=== PATIENT | male | born 1965 | race Caucasian/White ===

== ENCOUNTER 2016-06-13 06:07 | Inpatient (IN) | payer OTHER ==
[2016-05-29 11:14] LABS: % IMMATURE GRANULYOCYTES 0.2 % (0.0-1.1); ABSOLUTE IMMATURE GRANULOCYTES 0.01 10^3/uL (0.00-0.10); ADD DIFF? NO; ADD MORPH? NO; ADD SCAN? NO; ATYPICAL LYMPHOCYTE FLAG 10 (0-99); FRAGMENT RBC FLAG 0 (0-99); HEMATOCRIT 43.3 % (40.0-51.0); HEMOGLOBIN 14.7 g/dL (13.7-17.5); LEFT SHIFT FLG 0 (0-99); LIPEMIA HEMOLYSIS FLAG 90 (0-99); MEAN CELL HEMOGLOBIN 30.4 pg (27.9-34.1); MEAN CELL HEMOGLOBIN CONCENTR. 33.9 g/dL (32.4-36.7); MEAN CELL VOLUME 89.6 fL (81.5-99.8); MEAN PLATELET VOLUME 10.6 fL (8.7-11.7); PLATELET CLUMPS FLAG 0 (0-99); PLATELET COUNT 188 10^3/uL (150-400); RED BLOOD CELL COUNT 4.83 10^6/uL (4.40-6.38); RED CELL DISTRIBUTION WIDTH 12.7 % (11.5-15.2)
[~2016-06-13 06:07] MED LIST: ACETAMINOPHEN 325 MG TAB PO ONE; CEFAZOLIN 2 GM/DEXTR 100 ML IV ONE; CHLORHEXIDINE GLUC HIBICLENS 118 ML BTL TP ONE; DEXAMETHASONE 4 MG/ML VIAL IVP ONE; FAMOTIDINE 20 MG TAB PO ONE; ROPI/epiNEPH/KETOROLAC JOINT COCKTAIL IU ONE; TRANEXAMIC ACID 3,000 MG in NS 50 ML IRR ONE
[2016-06-13] MEDS ORDERED: SKIN ADHESIVE (DERMABOND) 1 EACH TP ONE (06:44)
[2016-06-13] MEDS ORDERED: VANCOMYCIN 1 GM VIAL IV ONE (06:45)
[2016-06-13] MEDS ORDERED: TRANEXAMIC ACID 3,000 MG/50 ML BAG IRR ONE (06:45)
[2016-06-13] MEDS ORDERED: PROPOFOL/EMULSION 500 MG/50 ML BOTTLE IV ONE ×3 (06:57→08:37)
[2016-06-13] MEDS ORDERED: LIDOCAINE 2% 100 MG/5 ML SYR IVP ONE (06:57)
[2016-06-13] MEDS ORDERED: MIDAZOLAM 2 MG/2 ML VIAL ONE ×2 (06:57→06:58)
[2016-06-13] MEDS ORDERED: LIDOCAINE 1% 5 ML SDV ID PRN (07:04)
[2016-06-13] MEDS ORDERED: LR 1,000 ML IV ONE (07:04)
[2016-06-13] MEDS ORDERED: POLYETHYLENE GLYCOL 3350 17 GM PKT PO PRN (09:19)
[2016-06-13] MEDS ORDERED: PHARMACY PAIN CONSULT 1 EA MISC PRN (09:19)
[2016-06-13] MEDS ORDERED: BISACODYL 10 MG SUPP PR PRN (09:19)
[2016-06-13] MEDS ORDERED: DIPHENOXYLATE/ATROPINE LOMOTIL 1 TAB PO PRN (09:19)
[2016-06-13] MEDS ORDERED: LACTULOSE 20 GM/30 ML UDCUP PO PRN (09:19)
[2016-06-13] MEDS ORDERED: ONDANSETRON 4 MG/2 ML VIAL IVP PRN (09:19)
[2016-06-13] MEDS ORDERED: PROMETHAZINE HCL 25 MG/ML VIAL IVP PRN (09:19)
[2016-06-13] MEDS ORDERED: MAGNESIUM HYDROXIDE 30 ML UDCUP PO PRN (09:19)
[2016-06-13] MEDS ORDERED: METOCLOPRAMIDE 10 MG/2 ML VIAL IVP PRN (09:19)
[2016-06-13] MEDS ORDERED: diphenhydrAMINE 25 MG CAP PO PRN (09:19)
[2016-06-13] MEDS ORDERED: CYCLOBENZAPRINE 10 MG TAB PO PRN (09:19)
[2016-06-13] MEDS ORDERED: ONDANSETRON DISINTEGRATING 4 MG TAB PO PRN (09:19)
[2016-06-13] MEDS ORDERED: TEMAZEPAM 15 MG CAP PO PRN (09:19)
[2016-06-13] MEDS ORDERED: PROMETHAZINE HCL 25 MG SUPPR PR PRN (09:19)
--- NOTE | 2016-06-13 09:19 | POSTOPPROG ---
Post Op Note Date of Operation: 06/13/16 Surgeon: Ewa Cruz Bee Breeder: raya cruz Anesthesiologist: dr. beltrán Anesthesia: Spinal, Other (Specify) (adductor canal block) Pre-op Diagnosis: severe knee OA Post-op Diagnosis: same Indication: left knee pain due to OA that failed conservative measures Procedure: L TKA Findings: severe knee OA Inf/Abcess present in the surg proc area at time of surgery?: No EBL: 50-100
[2016-06-13] MEDS ORDERED: BUPIVACAINE/EPI 0.5% 30 ML SDV ONE (09:29)
[2016-06-13] MEDS ORDERED: LR 1,000 ML IV SCH (09:30)
--- NOTE | 2016-06-13 10:08 | DX ---
Left Knee, Two Views 0951 hours History: Status post knee arthroplasty. Findings: Total knee arthroplasty appears in anatomical alignment with horizontal screw through the d istal metadiaphysis of the left femur and oblique screw in the metaphysis of the left femur possibly representing ACL repair. Gas in the joint space and edema in the suprapatellar soft tissues. Edema in the soft tissues. Impression: Status post left total knee replacement.
[2016-06-13 10:19] VITALS: RESP 16
[2016-06-13] MEDS: oxyCODONE IR 5 MG TAB PO PRN ×4 (10:52→21:55)
[2016-06-13] MEDS: ACETAMINOPHEN 325 MG TAB PO SCH ×3 (11:50→23:35)
[2016-06-13] MEDS: ceFAZolin 2 GM/DEXTROSE 100 ML IV SCH ×2 (14:57→21:55)
--- NOTE | 2016-06-13 18:11 | GOP ---
[f rep st] OPERATIVE REPORT DATE OF OPERATION: 06/13/2016 SURGEON: Gato Burton MD DRY CELL TESTER: CLAUDIA Wu ANESTHESIA: Spinal. PREOPERATIVE DIAGNOSIS: Left knee osteoarthritis. POSTOPERATIVE DIAGNOSIS: Left knee osteoarthritis. PROCEDURE PERFORMED: Left total knee arthroplasty. FINDINGS: ESTIMATED BLOOD LOSS: 30 cc. INDICATIONS: This is a 50-year-old male with severe and progressive pain and deformity of the left knee unresponsive to conservative care. Risks and benefits of the surgical intervention were explained in detail. DESCRIPTION OF PROCEDURE: The patient was brought to the operative room and placed on the table in the supine position. Spinal anesthesia was induced without difficulty. A pneumatic tourniquet was applied about the left proximal thigh, and the leg was prepped and draped in a sterile fashion. The leg garcia was applied. After exsanguination by elevation the tourniquet was inflated to 275 mm of mercury. Incision was made anterior medial from the tibial tuberosity to a point 2 cm proximal to the superior pole of the patella. Medial parapatellar arthrotomy was carried out from the superior pole of the patella and posteriorly in line with the fibers of the Type II VMO. The medial collateral ligament was elevated and the infrapatellar fat pad was resected. The patella was everted and the articular surface was excised. A 35 mm patellar button was placed. Attention was turned first to the distal aspect of the right femur. At 3 cm proximal to the medial rise of the femur, 2 percutaneous half pins were placed for fixation of the femoral array. In a similar fashion, 2 pins were placed anteromedial on the tibia for fixation of the tibial array. External land marking and registration of the hip center was performed without difficulty. Internal femoral and tibial registration was carried out without difficulty and the femoral and tibial checkpoints were placed and verified for accuracy. Attention was turned to the femur. The foot print for the size 5 femoral component was cut with the saw using the [employer] robotic system and verified for accuracy against the CT based plan. In a similar fashion, saw was used to cut the footprint for the size 6 tibial component using the [employer] system and verified for accuracy against the CT based plan. The tibial articular surface was excised without difficulty, followed by the intercondylar box cut. ACL screw was removed from tibia and moderate tibial cyst noted. This was cleaned with ronguer and filled with cement during cementation The knee was extended and the remnants of the medial and lateral meniscus were excised. The posterior capsule was injected with ropivacaine, epinephrine and Toradol. A size 6 universal tibial tray was positioned. Trial reduction was then carried out. There was excellent range of motion, alignment, and stability using the 11 mm polyethylene. All trials were then removed. The joint was thoroughly irrigated and carefully dried. Two packages of cement and 2 grams of vancomycin were mixed in the vacuum mixer and placed on the fixation surfaces of all surfaces of the components. The components were implanted and all excess cement was thoroughly removed. The permanent 9 mm polyethylene was placed without difficulty. The tourniquet was deflated and all bleeders were coagulated. The wound was thoroughly irrigated and closed using interrupted sutures of 2-0 Vicryl for the joint capsule. The subcu was closed with 3-0 Vicryl and the skin with 4-0 Monocryl. Dermabond and Steri-Strips were applied followed by a compressive dressing. The patient was then moved from the operating room to the recovery room in good condition, having tolerated the procedure well. PATHOLOGY: Severe tricompartmental osteoarthritis. /[id number]/MODL MTDD
[2016-06-13] MEDS: FAMOTIDINE 20 MG TAB PO SCH (20:39)
[2016-06-13] MEDS: SENNOSIDES/DOCUSATE SODIUM TAB PO SCH (20:39)
[2016-06-13] MEDS: ASPIRIN 325 MG TAB PO SCH (20:39)
[2016-06-14] MEDS: oxyCODONE IR 5 MG TAB PO PRN ×2 (04:20→10:03)
[2016-06-14 05:40] LABS: HEMATOCRIT 36.2 % (40.0-51.0); HEMOGLOBIN 12.2 g/dL (13.7-17.5)
[2016-06-14] MEDS ORDERED: LEVOTHYROXINE 125 MCG TAB PO SCH (06:00)
[2016-06-14] MEDS: ACETAMINOPHEN 325 MG TAB PO SCH (06:10)
[2016-06-14 08:48] VITALS: BP 128/87; PULSE 69; TEMP 98.1; O2SAT 95
[2016-06-14] MEDS: ASPIRIN 325 MG TAB PO SCH (09:07)
[2016-06-14] MEDS: FAMOTIDINE 20 MG TAB PO SCH (09:08)
[2016-06-14] MEDS: SENNOSIDES/DOCUSATE SODIUM TAB PO SCH (09:08)
--- NOTE | 2016-06-14 10:27 | SOAPPROG ---
SOAP Progress Note Assessment/Plan: Assessment: Patient is doing well POD 1 s/p L TKA 1.Pain management: pain is well controlled on oral pain meds 2.Anemia: level is expected initially postop. Asymptomatic. Cont to monitor for symptoms 3.VTE ppx: recommend aspirin 325mg daily. Cont DEISI mercado and SCD 4. d/c planning: d/c to home today pending release from PT. Plan: 06/14/16 10:26 Subjective: Jason is doing well this morning. denies SOB, chest pain and N/V. Objective: Vital Signs Temp Pulse Resp BP Pulse Ox 36.7 C 69 16 128/87 H 95 06/14/16 08:00 06/14/16 08:00 06/14/16 08:00 06/14/16 08:00 06/14/16 08:00 Laboratory Results 06/14/16 04:17 06/13/16 06/14/16 06/15/16 05:59 05:59 05:59 Intake Total 1980 Output Total 1800 Balance 180 LLE: incision dressing is clean and dry, nVI, +pf/df ICD10 Worksheet Patient Problems: Problems Problem Status Diagnosed Primary localized osteoarthritis of left knee Acute
--- NOTE | 2016-06-14 11:33 | GDS ---
[f rep st] DISCHARGE SUMMARY ADMISSION DIAGNOSIS: Left knee osteoarthritis. DISCHARGE DIAGNOSIS: Left knee osteoarthritis. PROCEDURE: Left total knee arthroplasty, robot assisted. VTE PROPHYLAXIS: Aspirin recommended for 3 weeks daily. BRIEF DESCRIPTION OF HOSPITAL STAY: Patient was admitted for an elective joint arthroplasty. The pa tient tolerated the procedure well and has passed physical therapy. The patient was given appropriat e antibiotic prophylaxis and venous thromboembolism prophylaxis. The patient's pain was well control led on oral pain medication, patient was holding down food, and had urinated. Decision was made to d ischarge the patient. The patient was given post-operative prescriptions pre-operatively. PLAN: To follow up with Dr. Burton at [facility] in 2 to 3 weeks. /[id number]/MODL
== END 2016-06-14 11:08 | disposition home or self-care (01) | DRG 470 ==
LOC: F3N 06:07
PROVIDERS: ADMIT Orthopaedic Surgery; ATTEND Orthopaedic Surgery
PROC: 8E0Y0CZ Robotic Assisted Procedure of Lower Extremity, Open Approach (ICD-10-PCS; principal; 2016-06-13 07:15)
PROC: 0SRD0J9 Replacement of Left Knee Joint with Synthetic Substitute, Cemented, Open Approach (ICD-10-PCS; principal; 2016-06-13 07:15)
DX: M17.12 Unilateral primary osteoarthritis, left knee (principal)
CPT/HCPCS: 97116-GP; 97161-GP; 97165-GO; 97530-GP; C1713; J0171; J0690; J1100; J1885; J2001; J2250; J2704; J2795; J3370

== ENCOUNTER 2016-12-08 10:55 | Day surgery (SDC) | payer OTHER ==
[2016-12-08] MEDS ORDERED: HYDROmorphONE/DILAUDID 1 MG/ML SYR IVP ONE ×3 (11:00→11:26)
[2016-12-08] MEDS ORDERED: ONDANSETRON 4 MG/2 ML VIAL IVP ONE (11:00)
[2016-12-08] MEDS ORDERED: HYDROmorphONE/DILAUDID 1 MG/ML SYR ONE ×4 (11:04→11:27)
[2016-12-08] MEDS ORDERED: ONDANSETRON 4 MG/2 ML VIAL ONE (11:04)
--- NOTE | 2016-12-08 11:11 | EDPHY ---
H & P HPI/ROS: CHIEF COMPLAINT: Severe bleeding and laceration to right arm HISTORY OF PRESENT ILLNESS: The patient is a 51 y/o male who arrives POV with severe bleeding from his right arm after falling through a window today. He states he fell 6ft through glass window and suffered a large deep cut to his right arm. His brother placed a makeshift tourniquet immediately. He denies LOC , head strike, spinal pain, chest pain, abdominal pain, pelvic pain, weakness, paresthesias or other injuries anywhere else. He is completely alert and oriented. He denies any pertinent medical history. No anticoagulant use. REVIEW OF SYSTEMS: A full review of systems was not performed due to the emergent nature of his injury. Physical Exam: Initial blood pressure 159/20. Vital signs reviewed. General: The patient is in acute distress with active uncontrolled bleeding from his right arm. The patient is alert. Aziza Coma Score is 15. Head: Normocephalic/atraumatic. No Reyez's sign. No raccoon eyes. Neck: Nontender with palpation of the cervical spine. Trachea is midline. Eyes: PERRLA. EOMI. No subconjunctival hemorrhage. Ears nose and throat: No hemotympanum. Nares are patent and without clotted nasal blood. No dental injury or malocclusion. Airway is patent. Lungs: No rib tenderness, crepitus, or subcutaneous emphysema. Breath sounds are equal and audible bilaterally. No wheezes, rales, or rhonchi. Cardiac: Heart has regular rate and rhythm without murmur, rub, or gallop. Abdomen: Soft, nontender, and nondistended. No guarding or rebound. Bowel sounds are present. Back: No vertebral tenderness. Skin: No ecchymosis. Skin is warm and dry. Extremities: Right arm has large laceration, approximately 6 inches, distal to elbow with active pulsating extravasation. Tourniquets applied until no radial pulse can be felt. Other extremities are atraumatic. Pelvis is stable. Hips are nontender.. Neuro: The patient is alert and oriented. He is moving all 4 extremities spontaneously. Full neurovascular exam not performed due to emergent nature of his injury. 1059: Tourniquet placed just proximal to right elbow. Large laceration with severe bleeding is located just distal to elbow. Bleeding is not completely controlled by initial tourniquet and appears to be arterial. Surgeon paged. 1102: Second tourniquet placed proximal to first. Pressure bandage applied on top of that. X-ray ordered. Labs sent including type&screen. BP 157/139. 1105: Dr. Willson, surgeon, at bedside assessing patient. He will take him to the OR for repair. - Medical/Surgical History PMH: PMH includes: 1. Hypothyroidism - Levothyroxine 2. Left knee replacement. - Social History Additional Social History: Denies alcohol use. Nonsmoker. - Physical Exam Exam: Please see above. Constitutional: Initial Vital Signs Temperature (C) 36.5 C 12/08/16 11:24 Heart Rate 92 12/08/16 11:24 Respiratory Rate 18 12/08/16 11:24 Blood Pressure 159/120 H 12/08/16 11:24 O2 Sat (%) 96 12/08/16 11:24 O2 Delivery Mode Simple Mask O2 (L/minute) 10 Allergies/Adverse Reactions: No Known Allergies Allergy (Unverified 12/08/16 11:35) Home Medications: Medication Instructions Recorded Levothyroxine 12/08/16 Medical Decision Making - Diagnostics Imaging Results: X-ray of the right elbow evaluated by me. No obvious foreign material. No fracture or dislocation. I reviewed the radiology report. ED Course/Re-evaluation: Please see initial portion of this chart for emergency department course. This is a patient with a six inch laceration to the right arm and an arterial injury to his right, dominant, arm. X-ray did not show any bone injury or foreign material. Surgery was consulted shortly after the patient arrived, as it was clear that this would require surgical repair. I did not find evidence of other traumatic injuries at the time of my evaluation. The patient was taken from the emergency department to the operating room by Dr. Willson. Differential Diagnosis: I considered a differential diagnosis of traumatic injury that includes but is not limited to intracranial hemorrhage, skull fracture, concussion, vertebral injury, spinal cord injury, intrathoracic injury, intra-abdominal injury, long bone fractures, contusions, abrasions, and lacerations. In this setting, my major concern was for retained foreign body, arterial injury, nerve injury, and bone injury. The injury appear to be isolated to his right arm. Critical Care Time: I spent a total of 20 minutes of critical care time in obtaining history, performing a physical exam, bedside monitoring of interventions, collecting and interpreting tests and discussion with consultants but not including time spent performing procedures. He had an arterial injury and was at risk of extravasation. - Data Points Laboratory Results: Laboratory Results 12/08/16 11:00 12/08/16 11:00 Medications Given: Discontinued Medications Hydromorphone HCl (Dilaudid) 1 mg IVP EDNOW ONE Stop: 12/08/16 11:01 Last Admin: 12/08/16 11:00 Dose: 1 mg Hydromorphone HCl (Dilaudid) 1 mg IVP EDNOW ONE Stop: 12/08/16 11:16 Last Admin: 12/08/16 11:15 Dose: 1 mg Hydromorphone HCl (Dilaudid) 1 mg IVP EDNOW ONE Stop: 12/08/16 11:27 Last Admin: 12/08/16 11:26 Dose: 1 mg Cefazolin Sodium/Dextrose (Ancef 2 Gm (Premix)) 100 mls @ 200 mls/hr IV EDNOW ONE PRN Reason: Protocol Stop: 12/08/16 11:54 Last Admin: 12/08/16 11:34 Dose: 100 mls Lactated Ringer's (Lr) 1,000 mls @ 0 mls/hr IV ONCE ONE PRN Reason: Per Protocol Stop: 12/08/16 11:54 Last Admin: 12/08/16 15:07 Dose: 1,000 mls Ondansetron HCl (Zofran) 4 mg IVP EDNOW ONE Stop: 12/08/16 11:01 Last Admin: 12/08/16 11:00 Dose: 4 mg Departure - Departure Disposition: To OP Cath/Surgery Clinical Impression: Arterial hemorrhage Laceration of right forearm with complication Qualifiers: Encounter type: initial encounter Qualified Code(s): S51.811A - Laceration without foreign body of right forearm, initial encounter Condition: Good Report Scribed for: Gina Elizalde Report Scribed by: Valorie Rangel Date of Report: 12/08/16 Physician Review and Approval Statement: 12/09/16 13:18 Portions of this note were transcribed by the medical secretary receptionist. I, Dr. Gina Cabeen, personally performed the history, physical exam, and medical decision- making; and confirmed the accuracy of the information in the transcribed note.
[2016-12-08 11:20] LABS: % IMMATURE GRANULYOCYTES 0.3 % (0.0-1.1); ABSOLUTE IMMATURE GRANULOCYTES 0.02 10^3/uL (0.00-0.10); ADD DIFF? NO; ADD MORPH? NO; ADD SCAN? NO; ATYPICAL LYMPHOCYTE FLAG 10 (0-99); FRAGMENT RBC FLAG 0 (0-99); HEMATOCRIT 43.7 % (40.0-51.0); HEMOGLOBIN 14.6 g/dL (13.7-17.5); LEFT SHIFT FLG 0 (0-99); LIPEMIA HEMOLYSIS FLAG 80 (0-99); MEAN CELL HEMOGLOBIN 30.7 pg (27.9-34.1); MEAN CELL HEMOGLOBIN CONCENTR. 33.4 g/dL (32.4-36.7); MEAN CELL VOLUME 91.8 fL (81.5-99.8); MEAN PLATELET VOLUME 10.7 fL (8.7-11.7); PLATELET CLUMPS FLAG 10 (0-99); PLATELET COUNT 245 10^3/uL (150-400); RED BLOOD CELL COUNT 4.76 10^6/uL (4.40-6.38); RED CELL DISTRIBUTION WIDTH 13.5 % (11.5-15.2)
[2016-12-08] MEDS ORDERED: LIDOCAINE 1% 300 MG/30 ML SDV ONE (11:20)
[2016-12-08] MEDS ORDERED: BUPIVACAINE 0.5% 30 ML SDV ONE (11:20)
[2016-12-08] MEDS ORDERED: PAPAVERINE HCL 60 MG/2 ML SDV ONE (11:20)
[2016-12-08] MEDS ORDERED: BACITRACIN 50,000 UNITS/10 ML SYR IRR ONE (11:21)
[2016-12-08] MEDS ORDERED: POLYMYXIN B SULFATE 500,000 UNIT/10 ML SYR IRR ONE (11:21)
[2016-12-08] MEDS ORDERED: THROMBIN (BOVINE) 20,000 UNIT SPRAY TP ONE (11:22)
[2016-12-08] MEDS ORDERED: CEFAZOLIN 2 GM/DEXTROSE/100 ML BAG IV ONE (11:25)
[2016-12-08] MEDS ORDERED: ceFAZolin 2 GM/DEXTROSE 100 ML IV ONE (11:25)
[2016-12-08 11:27] LABS: APTT 24.3 SEC (23.0-38.0); INR 0.92 (0.83-1.16); PROTIME(PATIENT) 12.3 SEC (12.0-15.0)
[2016-12-08] MEDS ORDERED: PROPOFOL/EMULSION 500 MG/50 ML BOTTLE IV ONE (11:27)
[2016-12-08 11:32] LABS: ANION GAP 16 mEq/L (8-16); CALCIUM 9.9 mg/dL (8.5-10.4); CARBON DIOXIDE 23 mEq/l (22-31); CHLORIDE 107 mEq/L (97-110); CREATININE 1.5 mg/dL (0.7-1.3); GLOMERULAR FILTRATION RATE 49; GLUCOSE 102 mg/dL (70-100); POTASSIUM 3.5 mEq/L (3.5-5.2); SODIUM 146 mEq/L (134-144)
[2016-12-08] MEDS ORDERED: fentaNYL 100 MCG/2 ML INJ ONE ×2 (11:40→12:32)
[2016-12-08] MEDS ORDERED: LR 1,000 ML IV ONE (11:53)
--- NOTE | 2016-12-08 12:26 | PDANEPAE ---
ANE History of Present Illness s/p fall from ladder thru glass. RUE laceration ANE Past Medical History - Cardiovascular History Hx Hypertension: No Hx Arrhythmias: No Hx Chest Pain: No Hx Coronary Artery / Peripheral Vascular Disease: No Hx CHF / Valvular Disease: No Hx Palpitations: No - Pulmonary History Hx COPD: No Hx Asthma/Reactive Airway Disease: No Hx Recent Upper Respiratory Infection: No Hx Oxygen in Use at Home: No Hx Sleep Apnea: No - Endocrine History Hx Diabetes: No Hypothyroid: No Hyperthyroid: No Obesity: no - Renal History Hx Renal Disorders: No - Liver History Hx Hepatic Disorders: No - Neurological & Psychiatric Hx Hx Neurological and Psychiatric Disorders: No - Cancer History Hx Cancer: No - Congenital Disorder History Hx Congenital Disorders: No - GI History GERD: no Hx Gastrointestinal Disorders: No - Chronic Pain History Chronic Pain: No - Surgical History Prior Surgeries: knee ANE Review of Systems Review of systems is: negative - Exercise capacity Exercise capacity: >=4 METS ANE Patient History - Allergies Allergies/Adverse Reactions: No Known Allergies Allergy (Unverified 12/08/16 11:35) - Home Medications Home medications: home medication list seen and reviewed, none Home Medications: Levothyroxine 12/08/16 [Last Taken Unknown] - NPO status NPO Since - Liquids (Date): 12/08/16 NPO Since - Solids (Date): 12/08/16 NPO Since - Solids (Time): 08:00 - Anes Hx Anes Hx: no prior problems - Smoking Hx Smoking Status: Never smoked ANE Labs/Vital Signs - Labs Result Diagrams: 12/08/16 11:00 12/08/16 11:00 - Vital Signs Blood Pressure: 150/102 Heart Rate: 74 Respiratory Rate: 18 O2 Sat (%): 97 Height: 180.34 cm Weight: 83.915 kg ANE Physical Exam - Airway Neck exam: FROM Mallampati Score: Class 1 - Pulmonary Pulmonary: no respiratory distress - Cardiovascular Cardiovascular: regular rate and rhythym - ASA Status ASA Status: I, E ANE Anesthesia Plan Anesthesia Plan: general endotracheal anesthesia Urgent/Emergent Case: Micky vincent completed preop but documented later for safe timely pt care (RSI)
[2016-12-08] MEDS ORDERED: fentaNYL 100 MCG/2 ML INJ IVP PRN (12:27)
[2016-12-08] MEDS ORDERED: DEXAMETHASONE 4 MG/ML VIAL IVP PRN (12:27)
[2016-12-08] MEDS ORDERED: HYDROmorphONE/DILAUDID 1 MG/ML SYR IVP PRN (12:27)
[2016-12-08] MEDS ORDERED: METOCLOPRAMIDE 10 MG/2 ML VIAL IVP PRN (12:27)
[2016-12-08] MEDS ORDERED: NALOXONE HCL 0.4 MG/ML INJ IVP PRN (12:27)
[2016-12-08] MEDS ORDERED: ONDANSETRON 4 MG/2 ML VIAL IVP PRN (12:27)
[2016-12-08] MEDS ORDERED: HYDROmorphONE/DILAUDID 2 MG/ML INJ ONE (13:54)
--- NOTE | 2016-12-08 14:51 | POSTOPPROG ---
Post Op Note Date of Operation: 12/08/16 Surgeon: Marshal Vargas [employer] Administrator: Devon Colbrooke Anesthesia: GET(General Endotracheal) Pre-op Diagnosis: Left forearm wound Post-op Diagnosis: Same Procedure: Ulnar nerve microsurgical repain, repair ulnar flexor muscles left forearm Inf/Abcess present in the surg proc area at time of surgery?: No EBL: Minimal Complications: None
--- NOTE | 2016-12-08 14:54 | POSTANESTH ---
Post Anesthetic Evaluation Cardiovascular Status: Normal, Stable Respiratory Status: Normal, Stable Level of Consciousness/Mental Status: Can Participate in Eval Pain Control: Adequate, Prn Tx Ordered Nausea/Vomiting Control: Adequate, Prn Tx Ordered Complications Possibly Related to Anesthesia: None Noted
--- NOTE | 2016-12-08 15:30 | GOP ---
[f rep st] OPERATIVE REPORT DATE OF OPERATION: 12/08/2016 SURGEON: Marshal Vargas MD PREOPERATIVE DIAGNOSIS: Ulnar nerve transection mid forearm with laceration of ulnar side flexor mu scles. POSTOPERATIVE DIAGNOSIS: Ulnar nerve transection mid forearm with laceration of ulnar side flexor m uscles. PROCEDURE PERFORMED: 1. Repair of flexor digitorum superficialis finger, repair of flexor digitorum superficialis small finger, repair of flexor digitorum superficialis long finger, repair of flexor carpi ulnaris and rep air of palmaris longus muscle. 2. Microsurgical repair of ulnar nerve. FINDINGS: I repaired his ulnar nerve which was a clean laceration. I was able to orient the fascic les and repaired these with a single circumferential epineurial repair using 9-0 nylon suture. Exce llent contour of the nerve was achieved. I then sequentially repaired as best possible the muscles in the center of the muscle bellies. I oriented the area of tendon that was available and sewed the se together with 2-0 Vicryl sutures. This was a central portion of the tendon within the muscle bel lies. As far as I am able to ascertain, this included the palmaris longus, FDS long finger, FDS rin g finger, FDS small finger and flexor carpi ulnaris. I did form a loose fascial closure over this. INDICATIONS: This is a 51-year-old gentleman who was apparently up on a ladder when it slipped and fell, and his arm went through a large piece of plate glass. He sustained the above laceration. He was brought to [facility]'s Emergency Department. He was brought to the operating room with Dr. Henri Willson. The patient had significant bleeding at the scene and arrived with a tourniquet in place. Dr. Willson controlled the bleeding and called me after identifying ulnar ne rve laceration for microsurgical repair. DESCRIPTION OF PROCEDURE: After being called in by Dr. Henri Willson, after the patient was alread y anesthetized, I explored the wounds. The above findings were noted. I repaired the deepest muscl e which I believe is the flexor digitorum superficialis to the long finger as much as it was deep to the ulnar nerve. It is apparent that the laceration went all the way down to the ulnar shaft, star ting on the ulnar side, but did not involve any of the extensor musculature. The wound had already been cleansed and irrigated and all bleeding points had been controlled and there was no tourniquet up when I arrived. After repairing this muscle, the ends of the ulnar nerve were coapted and og t together. I used 9-0 nylon suture and performed epineurial repair on the superficial surface. Th ere were several small arteries running within the nerve that I was able to identify and use to orie nt nerve fibers. The epineurium easily slid over the ends of the cut fascicles and was able to enca se the fascicles easily within the newly created epineurial repair. I then used sutures to flip thi s and then repaired the deep surface of this in a similar fashion using interrupted 9-0 nylon suture s. Once this was completed, we irrigated the wound thoroughly and then repaired the rest of the mus cles. Most of his muscle injuries were in the central aspect of the muscle belly where there were n o identifiable tendons. I irrigated the wounds after repairing the muscles. I then loosely closed the forearm fascia to encase the muscles. We flexed the wrist at this point to take tension off the flexors including the wrist and digits. The subcutaneous layer was closed with 4-0 Vicryl, and the skin was closed with interrupted 4-0 nylon sutures. A sterile bulky dressing was applied followed by an extension blocking dorsal splint and compressive wrap. The patient was transferred to the [facility] area in excellent condition. He tolerated the procedure well. There were no complications. /[id number]/MODL
[2016-12-08 15:53] VITALS: RESP 14; TEMP 98.4
--- NOTE | 2016-12-08 16:55 | GHP ---
[f rep st] PREOP HISTORY AND PHYSICAL DATE OF ADMISSION: 12/08/2016 PREOPERATIVE DIAGNOSIS: Laceration right forearm. POSTOPERATIVE DIAGNOSIS: Laceration right forearm, ulnar artery transection, ulnar nerve transectio n, transection of all medial flexor muscle components. PROCEDURE: Arm exploration, ligation of ulnar artery in the proximal forearm, wound debridement. SENIOR INSIGHT MANAGER INTER[employer]ATIONAL: Javy Auguste. INDICATIONS: A 51-year-old male who sustained a laceration of the arm through a plate glass window. He arrived to the emergency room with a tourniquet in place on the right upper extremity. PROCEDURE IN DETAIL: Patient taken to the operating room where a pneumatic cuff was placed over the existing style tourniquet which was then removed. The arm was circumferentially scrubbed with Betadine, draped in the usual sterile fashion. The wound was copiously irrigated with saline. All of the musculature was cut through from the skin down to the ulna bone, and the ulnar nerve was identified in the depths of the wound, tagged with a Vicryl suture on its periphery to facilitate i dentification. At this point, with the wound irrigated clean, the tourniquet was let down to identi fy what was the bleeding source. Brisk arterial bleeding was present retrograde from the distal com ponent of the laceration from what was determined to be the ulnar artery. This was controlled first with a vascular clamp and then the proximal end identified and controlled. Several of the smaller vessels were controlled with Vicryl ties. At this point, palpation of the radial artery showed a bounding pulse, and it was felt since the rad ial pulse was intact and with such good back bleeding from the ulnar side of the transected specimen , it was reasonable to ligate this which was done with silk suture. With all bleeding under control now, Dr. Marshal Vargas was contacted, orthopedic hand specialist, to address the ulnar nerve repair wh ich he accomplished. He also took care of sewing the musculature back together and closing the woun d. /[id number]/MODL
[2016-12-08 17:20] VITALS: BP 120/78; PULSE 64; O2SAT 92
== END 2016-12-08 16:45 | disposition home or self-care (01) ==
LOC: MERGE 11:38 → FSGY 11:38
PROVIDERS: ATTEND Surgery
DX: S56.221A Laceration of other flexor muscle, fascia and tendon at forearm level, right arm, initial encounter (principal); S56.123A Laceration of flexor muscle, fascia and tendon of right middle finger at forearm level, initial encounter; S56.127A Laceration of flexor muscle, fascia and tendon of right little finger at forearm level, initial encounter; S54.01XA Injury of ulnar nerve at forearm level, right arm, initial encounter; W11.XXXA Fall on and from ladder, initial encounter
CPT/HCPCS: 96365; J0690; J1170; J1644; J2405; J2440; J2704; J3010

== ENCOUNTER → 2018-05-13 | Outpatient (CLI) | payer OTHER | LOC: FIMAGING 11:56 | PROVIDERS: ATTEND Orthopaedic Surgery | DX: S83.011A Lateral subluxation of right patella, initial encounter (principal); M17.11 Unilateral primary osteoarthritis, right knee; M85.661 Other cyst of bone, right lower leg; Z96.652 Presence of left artificial knee joint ==

== ENCOUNTER 2018-05-30 10:55 | Observation (INO) | payer OTHER ==
--- NOTE | 2018-05-30 06:14 | PDHPUP ---
History & Physical Update H&P update statement: This history and physical update is based on an assessment of the patient which was completed after admission or registration (within 24 hours), but prior to the surgery/procedure. H&P update: H&P reviewed & patient examined, no change in patient's condition since H&P completed
[~2018-05-30 10:55] MED LIST changes: -ACETAMINOPHEN 325 MG TAB PO ONE; -CEFAZOLIN 2 GM/DEXTR 100 ML IV ONE; -CHLORHEXIDINE GLUC HIBICLENS 118 ML BTL TP ONE; -DEXAMETHASONE 4 MG/ML VIAL IVP ONE; -FAMOTIDINE 20 MG TAB PO ONE; -ROPI/epiNEPH/KETOROLAC JOINT COCKTAIL IU ONE; +ROPIVACAINE 0.2% 80 MG, EPINEPHrine 0.2 MG, KETOROLAC TROMETHAMINE 30 MG in SYRINGE 0 ML IU ONE; +TRANEXAMIC ACID 3,000 MG in NS (SYRINGE) 50 ML IRR ONE; -TRANEXAMIC ACID 3,000 MG in NS 50 ML IRR ONE; +TRANEXAMIC ACID 3,000 MG/50 ML BAG IRR ONE
[2018-05-30] MEDS ORDERED: FAMOTIDINE 20 MG TAB PO ONE (11:43)
[2018-05-30] MEDS ORDERED: ACETAMINOPHEN 325 MG TAB PO ONE (11:43)
[2018-05-30] MEDS ORDERED: ceFAZolin 2 GM/DEXTROSE 100 ML IV ONE (11:43)
[2018-05-30] MEDS ORDERED: DEXAMETHASONE 4 MG/ML VIAL IVP ONE (11:43)
--- NOTE | 2018-05-30 12:41 | PDANEPAE ---
ANE History of Present Illness Knee OA ANE Past Medical History - Cardiovascular History Hx Hypertension: No Hx Arrhythmias: No Hx Chest Pain: No Hx Coronary Artery / Peripheral Vascular Disease: No Hx CHF / Valvular Disease: No Hx Palpitations: No - Pulmonary History Hx COPD: No Hx Asthma/Reactive Airway Disease: No Hx Recent Upper Respiratory Infection: No Hx Oxygen in Use at Home: No Hx Sleep Apnea: No Sleep Apnea Screening Result - Last Documented: Positive - Neurologic History Hx Cerebrovascular Accident: No Hx Seizures: No Hx Dementia: No - Endocrine History Hx Diabetes: No Endocrine History Comment: HYPOTHYROID - Renal History Hx Renal Disorders: No - Liver History Hx Hepatic Disorders: No - Neurological & Psychiatric Hx Hx Neurological and Psychiatric Disorders: No - Cancer History Hx Cancer: No - Congenital Disorder History Hx Congenital Disorders: No - GI History Hx Gastrointestinal Disorders: No - Other Health History Other Health History: NEG - Chronic Pain History Chronic Pain: No - Surgical History Prior Surgeries: knee ANE Review of Systems Review of Systems: - Exercise capacity METS (RN): 5 METS ANE Patient History - Allergies Allergies/Adverse Reactions: No Known Allergies Allergy (Verified 05/12/18 14:28) - Home Medications Home medications: home medication list seen and reviewed Home Medications: Hydrochlorothiazide [HCTZ (*)] 25 mg PO DAILY 05/12/18 [Last Taken Unknown] Ibuprofen [Motrin (*)] 200 mg PO DAILY PRN 05/12/18 [Last Taken Unknown] Levothyroxine [Synthroid 125 mcg (*)] 125 mcg PO DAILY06 05/12/18 [Last Taken Unknown] - Anes Hx Anes Hx: no prior problems (No prior spinals) - Smoking Hx Smoking Status: Never smoked - Family Anes Hx Family Hx Anesthesia Complications: NEG ANE Labs/Vital Signs - Vital Signs Height: 180.34 cm Weight: 81.647 kg ANE Physical Exam - Airway Neck exam: FROM Mallampati Score: Class 2 Mouth exam: normal dental/mouth exam - Pulmonary Pulmonary: no respiratory distress - Cardiovascular Cardiovascular: regular rate and rhythym - ASA Status ASA Status: I ANE Anesthesia Plan Anesthesia Plan: spinal Regional Anesthesia: adductor canal FNB
[2018-05-30] MEDS ORDERED: MIDAZOLAM 2 MG/2 ML VIAL IVP ONE (12:47)
[2018-05-30] MEDS ORDERED: BUPIVACAINE/DEXTROSE 7.5MG/ML 2 ML SPINAL AMP SP ONE (12:55)
[2018-05-30] MEDS ORDERED: PROPOFOL 200 MG/20 ML VIAL ONE (12:56)
[2018-05-30] MEDS ORDERED: PROPOFOL/EMULSION 500 MG/50 ML BOTTLE IV ONE ×2 (12:56→14:15)
[2018-05-30] MEDS ORDERED: NALOXONE HCL 0.4 MG/ML INJ IVP PRN (13:01)
[2018-05-30] MEDS ORDERED: fentaNYL 100 MCG/2 ML INJ IVP PRN (13:01)
[2018-05-30] MEDS ORDERED: ONDANSETRON 4 MG/2 ML VIAL IVP PRN ×2 (13:01→14:51)
[2018-05-30] MEDS ORDERED: ROPIVACAINE HCL 150 MG/30 ML INJ ONE (13:24)
[2018-05-30] MEDS ORDERED: CYCLOBENZAPRINE 10 MG TAB PO PRN (14:51)
[2018-05-30] MEDS ORDERED: TEMAZEPAM 15 MG CAP PO PRN (14:51)
[2018-05-30] MEDS ORDERED: MAGNESIUM HYDROXIDE 30 ML UDCUP PO PRN (14:51)
[2018-05-30] MEDS ORDERED: ONDANSETRON DISINTEGRATING 4 MG TAB PO PRN (14:51)
[2018-05-30] MEDS ORDERED: BISACODYL 10 MG SUPP PR PRN (14:51)
[2018-05-30] MEDS ORDERED: PROMETHAZINE HCL 25 MG/ML INJ IVP PRN (14:51)
[2018-05-30] MEDS ORDERED: LACTULOSE 20 GM/30 ML UDCUP PO PRN (14:51)
[2018-05-30] MEDS ORDERED: diphenhydrAMINE 25 MG CAP PO PRN (14:51)
[2018-05-30] MEDS ORDERED: DIPHENOXYLATE/ATROPINE LOMOTIL 1 TAB PO PRN (14:51)
[2018-05-30] MEDS ORDERED: POLYETHYLENE GLYCOL 3350 17 GM PKT PO PRN (14:51)
[2018-05-30] MEDS ORDERED: PROMETHAZINE HCL 25 MG SUPPR PR PRN (14:51)
[2018-05-30] MEDS ORDERED: METOCLOPRAMIDE 10 MG/2 ML VIAL IVP PRN (14:51)
--- NOTE | 2018-05-30 14:51 | POSTOPPROG ---
Post Op Note Date of Operation: 05/30/18 Surgeon: Ewa Cruz Information Systems Security Officer: raya cruz PAC Anesthesiologist: Dr. Stone Anesthesia: Spinal (adductor canal block), Other (Specify) Pre-op Diagnosis: right knee OA Post-op Diagnosis: same Indication: right knee pain Procedure: right TKA, robot assisted Findings: severe right knee OA Inf/Abcess present in the surg proc area at time of surgery?: No EBL: 50-100
[2018-05-30] MEDS ORDERED: LR 1,000 ML IV SCH (15:00)
--- NOTE | 2018-05-30 15:06 | POSTANESTH ---
Post Anesthetic Evaluation Cardiovascular Status: Similar to Pre-Op Cond Respiratory Status: Similar to Pre-op Cond. Level of Consciousness/Mental Status: Alert and Oriented Pain Control: Adequate, Prn Tx Ordered Nausea/Vomiting Control: Adequate, Prn Tx Ordered Complications Possibly Related to Anesthesia: None Noted (AC in PACU)
[2018-05-30] MEDS ORDERED: fentaNYL 100 MCG/2 ML INJ ONE (15:17)
[2018-05-30] MEDS: ACETAMINOPHEN 325 MG TAB PO SCH (17:25)
[2018-05-30] MEDS: oxyCODONE IR 5 MG TAB PO PRN (18:20)
[2018-05-30] MEDS: ceFAZolin 2 GM/DEXTROSE 100 ML IV SCH (21:12)
[2018-05-30] MEDS: SENNOSIDES/DOCUSATE SODIUM TAB PO SCH (21:13)
[2018-05-30] MEDS: ASPIRIN 81 MG CHEWABLE TAB PO SCH (21:13)
[2018-05-30] MEDS: FAMOTIDINE 20 MG TAB PO SCH (21:13)
[2018-05-31] MEDS: ACETAMINOPHEN 325 MG TAB PO SCH ×2 (00:25→05:23)
[2018-05-31] MEDS: oxyCODONE IR 5 MG TAB PO PRN ×2 (00:27→07:24)
[2018-05-31] MEDS: ceFAZolin 2 GM/DEXTROSE 100 ML IV SCH (05:23)
[2018-05-31] MEDS ORDERED: LEVOTHYROXINE 125 MCG TAB PO SCH (06:00)
[2018-05-31 06:56] VITALS: BP 120/80
[2018-05-31] MEDS ORDERED: HYDROCHLOROTHIAZIDE 25 MG TAB PO SCH (09:00)
[2018-05-31] MEDS: FAMOTIDINE 20 MG TAB PO SCH (09:56)
[2018-05-31] MEDS: ASPIRIN 81 MG CHEWABLE TAB PO SCH (09:56)
[2018-05-31] MEDS: SENNOSIDES/DOCUSATE SODIUM TAB PO SCH (09:56)
--- NOTE | 2018-05-31 12:34 | ASDISCHSUM ---
Discharge Information Plan Status:Home with No Needs Medically Cleared to Leave:05/30/2018 Discharge Date:05/30/2018 CM D/C Disposition:Home, Routine, Self-Care ADT D/C Disposition:Home, Routine, Self-Care Projected Discharge Date:05/30/2018 Transportation at D/C:Family Discharge Delay Reason: Follow-Up Date:05/30/2018 Discharge Slot:1 - 8:01 am - 12:00 noon Final Diagnosis:Right knee arthroplasty Placement Information Patient Contact Information Contact Name:DEBORAH Relationship:Other Address:[address] [place] Work Phone: City:[place] Alternate Phone: [facility]/Zip Code:[place] [address] Email: Financial Information Financial Class:HMO and PPO Plans Primary Plan Desc:[employer] ANGEL MORALES Primary Plan Number:[id number] Secondary Plan Desc: Secondary Plan Number: Assessment Information LACE LACE Length of stay for Answers: Less than 1 day current admission Acuity / Level of Answers: No Care: Did the patient have an inpatient admission? Comorbidities - select Answers: Other Notes: Multiple orthopedic all that apply # of Emergency department Answers: 0 visits in the last 6 months Score: 1 Date Signed: 05/31/2018 10:22 AM Electronically Signed By:Ginger Loomis RN [facility] Progress Note CM Note CM Note Notes: Reviewed chart. Pt admitted for a planned right knee arthroplasty. Pt to discharge home independently with no identified needs. No IM/TRAV signed, not applicable. Pt to follow up as directed. CM available for any further issues or concerns. Discharge Plan: Home independently Date Signed: 05/31/2018 10:24 AM Electronically Signed By:Ginger Loomis RN Intervention Information
--- NOTE | 2018-05-31 12:37 | ASMTLACE ---
LACE Length of stay for Answers: Less than 1 day current admission Acuity / Level of Answers: No Care: Did the patient have an inpatient admission? Comorbidities - select Answers: Other Notes: Multiple orthopedic all that apply # of Emergency department Answers: 0 visits in the last 6 months Score: 1 Date Signed: 05/31/2018 10:22 AM Electronically Signed By:Ginger Loomis RN
--- NOTE | 2018-05-31 12:37 | ASMTCMCOM ---
CM Note CM Note Notes: Reviewed chart. Pt admitted for a planned right knee arthroplasty. Pt to discharge home independently with no identified needs. No IM/RAVI signed, not applicable. Pt to follow up as directed. CM available for any further issues or concerns. Discharge Plan: Home independently Date Signed: 05/31/2018 10:24 AM Electronically Signed By:Ginger Loomis RN
--- NOTE | 2018-05-31 21:31 | SOAPPROG ---
SOAP Progress Note Assessment/Plan: Assessment: Jason is doing well POD 1 s/p R TKA pain is well controlled on oral pain meds VTE ppx: recommend aspirin 81 mg BID for 4 weeks Anemia: mild, expected postop D/c planning: patient has done much better than anticipated. Patient may discharge to home once released from PT. Plan: 05/31/18 21:29 Subjective: Jason is doing well today, denies SOB, chest pain, N/V Objective: Vital Signs Temp Pulse Resp BP Pulse Ox 36.5 C 66 15 120/80 99 05/31/18 06:55 05/31/18 06:55 05/31/18 06:55 05/31/18 09:56 05/31/18 06:55 Laboratory Results 05/31/18 04:29 05/31/18 04:29 05/30/18 05/31/18 06/01/18 05:59 05:59 05:59 Intake Total 1870 3800 Output Total 330 400 Balance 1540 3400 RLE: incision dressing is clean and dry, NVI, +pf/df ICD10 Worksheet Patient Problems: Problems Problem Status Onset Arterial hemorrhage Acute Laceration of right forearm with complication Acute Primary localized osteoarthritis of left knee Acute Primary localized osteoarthritis of right knee Acute
--- NOTE | 2018-06-02 02:30 | GOP ---
DATE OF OPERATION: 05/30/2018 SURGEON: Gato Burton MD [employer] TENDER: FARIBA Wu. ANESTHESIA: Spinal. PREOPERATIVE DIAGNOSIS: Right knee osteoarthritis. POSTOPERATIVE DIAGNOSIS: Right knee osteoarthritis. PROCEDURE PERFORMED: Right total knee arthroplasty with computer navigation, robotic assist. FINDINGS: ESTIMATED BLOOD LOSS: 30 cc. INDICATIONS: This is a 52-year-old male with severe and progressive pain and deformity of the right knee unresponsive to conservative care. Risks and benefits of the surgical intervention were explained in detail. DESCRIPTION OF PROCEDURE: The patient was brought to the operative room and placed on the table in the supine position. Spinal anesthesia was induced without difficulty. A pneumatic tourniquet was applied about the right proximal thigh, and the leg was prepped and draped in a sterile fashion. The leg garcia was applied. After exsanguination by elevation the tourniquet was inflated to 250 mmHg. Incision was made anterior medial from the tibial tuberosity to a point 2 cm proximal to the superior pole of the patella. Medial parapatellar arthrotomy was carried out from the superior pole of the patella and posteriorly in line with the fibers of the Type II VMO. The medial collateral ligament was elevated and the infrapatellar fat pad was resected. Severe tricompartmental osteoarthritis. The patella was everted and the articular surface was excised. A 38 mm patellar button was placed. Attention was turned first to the distal aspect of the femur. After exposure of the femur, 2 half pins were placed for fixation of the femoral array. In a similar fashion, 2 pins were placed anteromedial on the tibia for fixation of the tibial array. External land marking and registration of the hip center was performed without difficulty. Internal femoral and tibial registration was carried out without difficulty and the femoral and tibial checkpoints were placed and verified for accuracy. Attention was turned to the femur. The foot print for the size 5 femoral component was cut with the saw using the Winkcam robotic system and verified for accuracy against the CT based plan. In a similar fashion, the saw was used to cut the footprint for the size 6 tibial component using the ANNIA system and verified for accuracy against the CT based plan. The tibial articular surface was excised without difficulty, followed by the intercondylar box cut. The knee was extended and the remnants of the medial and lateral meniscus were excised. The posterior capsule was injected with ropivacaine, epinephrine and Toradol. A size 6 tibial tray was positioned. Trial reduction was then carried out. There was excellent range of motion, alignment, and stability using the 6 x 9 mm polyethylene. All trials were then removed. The joint was thoroughly irrigated and carefully dried. The press-fit components were implanted. The permanent 6 x 9 mm polyethylene was placed without difficulty. ACL screws were removed, 1 from the tibia and 1 from the femur. The tourniquet was deflated and all bleeders were coagulated. The wound was thoroughly irrigated and closed using interrupted sutures of 2-0 Vicryl for the joint capsule. The subcu was closed with 3-0 Vicryl and the skin with 4-0 Monocryl. Dermabond and Steri-Strips were applied followed by a compressive dressing. The patient was then moved from the operating room to the recovery room in good condition, having tolerated the procedure well. /[id number]/MODL MTDD
== END 2018-05-31 10:42 | disposition home or self-care (01) ==
LOC: F3N 10:55 → EDSTATUS 14:00 → F3N 16:08
PROVIDERS: ADMIT Orthopaedic Surgery; ATTEND Orthopaedic Surgery
PROC: 0SRC0JZ Replacement of Right Knee Joint with Synthetic Substitute, Open Approach (ICD-10-PCS; principal; 2018-05-30 13:00)
DX: M17.11 Unilateral primary osteoarthritis, right knee (principal)
CPT/HCPCS: 27447; 73560; 97116; 97161; G0378; J0171; J0690; J1100; J1885; J2250; J2704; J2795; J3010